=== PATIENT | female | born 1980 | race Caucasian/White ===

== ENCOUNTER 2022-04-28 15:22 | Outpatient (CLI) | payer OTHER, SELFPAY ==
--- NOTE | 2022-04-28 15:32 | MM_ITS ---
WS: [id number] BILATERAL 3D TOMOSYNTHESIS DIGITAL SCREENING MAMMOGRAPHY WITH CAD CLINICAL INFORMATION: SCREENING HISTORY: Screening mammogram. Bilateral breast pain and soreness Baseline TECHNIQUE: Bilateral CC and MLO views. FINDINGS: Scattered fibroglandular densities bilaterally. No suspicious focal mass, asymmetry, calcifications, or architectural distortion. No evidence of malignancy. Dense breast tissue upper inner LEFT breast. MM/[place] [id number] IMPRESSION: BI-RADS: 2-Benign FOLLOW UP: 1 Year Follow-up Recommend return to annual screening mammography.
== END 2022-04-28 15:23 | disposition home or self-care (01) ==
PROVIDERS: PCP Registered Nurse; Visit Provider Registered Nurse
DX: Z12.31 Encounter for screening mammogram for malignant neoplasm of breast (principal)
CPT/HCPCS: 77063; 77067

== ENCOUNTER → 2022-10-27 10:45 | Outpatient (BNVA) | payer SELFPAY | PROVIDERS: PCP Registered Nurse; Visit Provider Registered Nurse | DX: R10.9 Unspecified abdominal pain (principal) | CPT/HCPCS: 81000 ==

== ENCOUNTER → 2022-10-31 12:43 | Outpatient (BNVA) | payer SELFPAY | PROVIDERS: PCP Registered Nurse; Visit Provider Registered Nurse | DX: R10.9 Unspecified abdominal pain (principal) | CPT/HCPCS: 87086 ==

== ENCOUNTER 2022-12-05 10:46 | Emergency (ER) | payer SELFPAY ==
[2022-12-05 10:53] VITALS: BP 169/92; PULSE 76; RESP 17; TEMP 36.8; O2SAT 100; BMI 32.1
[2022-12-05 11:29] LABS: Basophils % 0.7 %; Eosinophils # 0.2 10^3/uL (0.0-0.8); Eosinophils % 2.6 %; Hematocrit 37.5 % (36-47); Lymphocytes # 1.9 10^3/uL (0.8-4.8); Mean Corpuscular HGB Conc 30.9 g/dL (30-55); Mean Corpuscular Hemoglobin 25.3 pg (27-33); Mean Corpuscular Volume 81.7 fl (85-98); Mean Platelet Volume 9.9 fL (7.4-10.4); Monocytes # 0.3 10^3/uL (0.2-0.9); Monocytes % 4.9 %; Neutrophils # 3.26 10^3/uL (1.8-7.7); Neutrophils % 57.6 %; Nucleated Red Blood Cells % 0 %; Platelet Count 263 10^3/cmm (157-399); Red Blood Count 4.59 10^6/uL (3.85-5.65); Red Cell Distribution Width 14.8 % (12.1-15.1); White Blood Count 5.67 10^3/uL (3.29-11.43)
--- NOTE | 2022-12-05 11:46 | ED_ITS ---
HPI - Abdominal Pain General: Chief Complaint: Abdominal Pain Stated Complaint: abd pain Time Seen by Provider: 12/05/22 11:15 Source: patient Mode of arrival: ambulatory History of Present Illness: 42-year-old female comes in complaining of right upper abdominal pain for the last year. She has been seen by a couple of different clinics has had gallbladder work-up which was negative she is on omeprazole. She has also been seen in another local ER. No significant finding up to this point she is little more nauseated this morning she was presented to the emergency room she has no history of nephrolithiasis no hematuria. No fevers sweats or chills. MD elicited complaint: abdominal pain Pertinent past history: none Onset (ago): year(s) Pain Consistency: intermittent Location: RUQ Severity: moderate Quality: cramping Radiation: R flank Exacerbating factors: nothing Relieving factors: nothing Associated Symptoms: Reports nausea; Denies anorexia, belching, bloating, change in bowel habits, change in stool melissa racter, chills, coffee ground emesis, constipation, GI cramping, diarrhea, dyspepsia, dysuria, excessive flatus, fever(s), heartburn, hematochezia, hematuria, hematemesis, fecal incontinence, loose stools, melena, poor appetite, syncope and vomiting Related Data: Patient : No Review of Systems Const: Denies: fever(s) or chills ENMT: Denies: throat pain, ear or mastoid pain, nasal discharge or nasal congestion Card: Denies: chest pain, palpitations or syncope Resp: Denies: dyspnea, productive cough or non-productive cough GI: Reports: abdominal pain and nausea; Denies: vomiting, hematemesis, coffee ground emesis, heartburn, diarrhea, con stipation, bloating, GI cramping, belching, excessive flatus, fecal incontinence, change in bowel habits, change in stool character, hematochezia or melena : Denies: dysuria, urinary frequency, urinary urgency or hematuria Skin/Breast: Denies: rash or pruritus PFSH ED PFSH: Medical History 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 Surgical History H/O tubal ligation History of x2 2001, 2003 Family History Father Anemia Denies family history of Diabetes CAD (coronary artery disease) Hyperlipidemia Psychiatric illness Chronic kidney disease (CKD) Lung disease Cancer Hypertension Stroke Social History Smoking and tobacco status: current some day smoker Second hand smoke exposure: No Alcohol intake: never Substance/Drug Use: never Adopted: No Caregiver/support person: No Lives independently: No Household members: spouse and children Marital status: service: No Current occupational status: employed Sexually active: Yes Do you think of yourself as: Straight/Heterosexual Current gender identity: Female Physical Exam Const: COMMON NORMALS: no acute distress GENERAL APPEARANCE: cooperative and comfortable ORIENTATION/CONSCIOUSNESS: Yes awake, Yes oriented to person, Yes oriented to place and Yes oriented to time HENMT: COMMON NORMALS: normocephalic, atraumatic and hearing grossly normal bilaterally HEAD & SCALP: normocephalic and atraumatic Resp: COMMON NORMALS: normal respiratory effort, No retractions, No use of acc essory muscles and clear to auscultation bilaterally AUSCULTATION: clear to auscultation bilaterally Cardio: COMMON NORMALS: regular rate, regular rhythm and No murmurs present (Cardio) RATE: regular rate RHYTHM: regular rhythm GI: COMMON NORMALS: Soft to palpation and No hepatosplenomegaly present AUSCULTATION: Yes normoactive bowel sounds PALPATION: Yes Soft to palpation, No Tenderness to palpation present (GI), No Guarding due to palpation present (G I) and Yes No hepatosplenomegaly present Extremity: COMMON NORMALS: normal to inspection, capillary refill normal, no clubbing, cyanosis or edema, no calf tenderness and no pedal edema Neuro: SENSORIUM/ORIENTATION: Yes oriented to person, Yes oriented to place and Yes oriented to time Skin: COMMON NORMALS: no rashes or lesions noted GENERAL SKIN EXAM: no rashes or lesions noted Course Vital Signs: Vital signs: Vital Signs Temperature 98.3 F 12/05/22 10:53 Pulse Rate 76 12/05/22 10:53 Respiratory Rate 17 12/05/22 10:53 Blood Pressure 169/92 12/05/22 10:53 Pulse Oximetry 100 10/03/23 13:14 Oxygen Delivery Me thod Room Air 12/05/22 10:53 MDM - Abdominal Pain Medical Decision Making Suspect biliary colic. Recommend outpatient HIDA scan. She had other multiple physical complaints recommend she follow-up with her primary care doctor though this is not of these are acute. We will set up outpatient HIDA scan. Patient reports previously having had normal gallbladder ultrasound. Differential Diagnosis Likely abdominal pain, calculus of kidney, constipation and gastroenteritis Medical Records I reviewed the patient's medical records. Lab Data I reviewed the patient's lab results. 12/05/22 11:24 12/05/22 11:24 Labs/Radiology: Laboratory Results WBC 5.67 10^3/uL (3.29-11.43) 12/05/22 11:24 RBC 4.59 10^6/uL (3.85-5.65) 12/05/22 11:24 Hgb 11.60 g/dL (11.27-16.99) 12/05/22 11:24 Hct 37.5 % (36-47) 12/05/22 11:24 MCV 81.7 fl (85-98) L 12/05/22 11:24 MCH 25.3 pg (27-33) L 12/05/22 11:24 MCHC 30.9 g/dL (30-55) 12/05/22 11:24 RDW 14.8 % (12.1-15.1) 12/05/22 11:24 Plt Count 263 10^3/cmm (157-399) 12/05/22 11:24 MPV 9.9 fL (7.4-10.4) 12/05/22 11:24 Neut % (Auto) 57.6 % 12/05/22 11:24 Lymph % (Auto) 34.0 % 12/05/22 11:24 Grant % (Auto) 4.9 % 12/05/22 11:24 Eos % (Auto) 2.6 % 12/05/22 11:24 Baso % (Auto) 0.7 % 12/05/22 11:24 Neut # (Auto) 3.26 10^3/uL (1.8-7.7) 12/05/22 11:24 Lymph # (Auto) 1.9 10^3/uL (0.8-4.8) 12/05/22 11:24 Grant # (Auto) 0.3 10^3/uL (0.2-0.9) 12/05/22 11:24 Eos # (Auto) 0.2 10^3/uL (0.0-0.8) 12/05/22 11:24 Baso # (Auto) 0.0 10^3/uL (0.0-0.1) 12/05/22 11:24 Nucleated RBC % (auto) 0 % 12/05/22 11:24 Nucleated RBCs # 0.0 /100WBC 12/05/22 11:24 Sodium 136 mmol/L (136-145) 12/05/22 11:24 Potassium 3.9 mmol/L (3.5-5.1) 12/05/22 11:24 Chloride 104 mmol/L (98-107) 12/05/22 11:24 Carbon Dioxide 23 mmol/L (22-29) 12/05/22 11:24 Anion Gap 12.9 (5-19) 12/05/22 11:24 BUN 12 mg/dL (6-20) 12/05/22 11:24 Creatinine 0.5 mg/dL (0.5-0.9) 12/05/22 11:24 GFR Calculation 136.0 mL/min (90-130) H 12/05/22 11:24 Glucose 103 mg/dL (65-115) 12/05/22 11:24 Calculated Osmolality 282 mOsm/kg (285-295) L 12/05/22 11:24 Calcium 8.7 mg/dL (8.5-10.5) 12/05/22 11:24 Total Bilirubin 0.4 mg/dL (0.15-1.2) 12/05/22 11:24 AST 14 U/L (0-32) 12/05/22 11:24 ALT 8 U/L (0-33) 12/05/22 11:24 Alkaline Phosphatase 85 U/L (35-105) 12/05/22 11:24 Total Protein 7.4 g/dL (6.6-8.7) 12/05/22 11:24 Albumin 4.3 g/dL (3.5-5.2) 12/05/22 11:24 Globulin 3.1 g/dL (1.3-4.6) 12/05/22 11:24 Lipase 29 U/L (13-60) 12/05/22 11:24 HCG, Qual Negative (Negative) 12/05/22 11:24 Urine Color Yellow (Yellow) 12/05/22 12:10 Urine Appearance Clear (CLEAR) 12/05/22 12:10 Urine pH 6 (5-7) 12/05/22 12:10 Ur Specific [place] 1.010 (1.005-1.030) 12/05/22 12:10 Urine Protein Neg (Negative) 12/05/22 12:10 Urine Glucose (UA) Norm (Normal) 12/05/22 12:10 Urine Ketones Negative (Negative) 12/05/22 12:10 Urine Blood Neg (Negative) 12/05/22 12:10 Urine Nitrate Negative (Negative) 12/05/22 12:10 Urine Bilirubin Neg (Negative) 12/05/22 12:10 Urine Urobilinogen Norm mg/dL (Negative) 12/05/22 12:10 Ur Leukocyte Esterase Negative (Negative) 12/05/22 12:10 No radiology studies performed this visit Discharge Plan Discharge Patient Disposition: Home Clinical Impression: Abdominal pain, Colic, biliary Condition: Stable Prescriptions: No Action ibuprofen 200 mg Tablet 600 mg PO Q6H PRN (Reason: Pain) omeprazole 20 mg Tablet,Delayed Release (Dr/Ec) 20 mg PO DAILY Discharge Orders: Discharge ED (Routine); Ordered 12/05/22 Ordered By: Pastor Taylor Referrals: Kelly Alford, [facility] [Primary Care Provider] - Discharge Diet: As Directed Discharge Activity: Increase activity as tolerated Patient Instructions: Abdominal Pain (ED), Biliary Dyskinesia (DC), Opioid Safety, Pain Management Activity Restrictions/Additional Instructions: Case management will set up a HIDA scan to evaluate your gallbladder further. Follow-up with your primary care doctor. Coding Level of Care Code ED Food Service Team Member for Flakita Chicas
[2022-12-05 11:47] LABS: Alanine Aminotransferase 8 U/L (0-33); Albumin Level 4.3 g/dL (3.5-5.2); Alkaline Phosphatase 85 U/L (35-105); Anion Gap 12.9 (5-19); Aspartate Amino Transferase 14 U/L (0-32); Blood Urea Nitrogen 12 mg/dL (6-20); Calcium 8.7 mg/dL (8.5-10.5); Carbon Dioxide 23 mmol/L (22-29); Chloride 104 mmol/L (98-107); Globulin 3.1 g/dL (1.3-4.6); Glucose 103 mg/dL (65-115); Lipase 29 U/L (13-60); Osmolality Calculated 282 mOsm/kg (285-295); Potassium 3.9 mmol/L (3.5-5.1); Sodium 136 mmol/L (136-145); Total Bilirubin 0.4 mg/dL (0.15-1.2); Total Protein 7.4 g/dL (6.6-8.7)
[2022-12-05 11:57] LABS: HCG, Serum Qual Negative (Negative)
[2022-12-05 12:21] LABS: Add Urine Microscopic? NO; Charge for UA Resulting for Rev
[2022-12-05 12:26] LABS: Bilirubin Urine Neg (Negative); Blood Urine Neg (Negative); Glucose Urine UA Norm (Normal); Ketones Urine Negative (Negative); Leukocyte Esterase Urine Negative (Negative); Nitrate Urine Negative (Negative); Protein Urine Neg (Negative); Urine Appearance Clear (CLEAR); Urine Color Yellow (Yellow); Urobilinogen Urine Norm (Negative); pH Urine 6 (5-7)
[2022-12-05 13:14] VITALS: O2SAT 100
--- NOTE | 2022-12-06 13:30 | PC.SOCIAL ---
Orders for HIDA scan faxed to Centralized scheduling. Message sent to [facility]. [facility] clinic for follow up appt.
== END 2022-12-05 13:16 | disposition home or self-care (01) ==
PROVIDERS: Emergency Provider Family Medicine; PCP Registered Nurse
DX: R10.11 Right upper quadrant pain (principal); K80.50 Calculus of bile duct without cholangitis or cholecystitis without obstruction; F17.210 Nicotine dependence, cigarettes, uncomplicated
CPT/HCPCS: 36415; 80053; 81003; 83690; 84703; 85025; 99283

== ENCOUNTER 2022-12-14 07:45 | Outpatient (CLI) | payer SELFPAY ==
--- NOTE | 2022-12-14 07:54 | NM_ITS ---
WS: [id number] NUCLEAR MEDICINE HIDA SCAN CLINICAL INFORMATION: BILIARY COLIC, ABD PAIN TECHNIQUE: Following intravenous administration of 7.3 mCi of technetium 99m mebrofenin, images of th e abdomen were obtained over the course of 60 minutes. Next, gallbladder ejection fraction was determ ined by obtaining preprandial and one-hour postprandial images of the gallbladder following oral enoc stion of Ensure. COMPARISON: None. FINDINGS: Normal hepatic uptake at 5 minutes. Normal hepatic excretion. Gallbladder is visualized by 10 minutes . No evidence of acute cholecystitis. Normal common bile duct and small bowel activity. Gallbladder ejection fraction 63% within normal limits. No evidence of chronic cholecystitis. IMPRESSION: 1. No evidence of acute or chronic cholecystitis. 2. Gallbladder ejection fraction 63% within normal limits.
== END 2022-12-14 07:46 | disposition home or self-care (01) ==
LOC: RAD 07:47
PROVIDERS: PCP Registered Nurse; Visit Provider Family Medicine
DX: K80.50 Calculus of bile duct without cholangitis or cholecystitis without obstruction (principal); R10.9 Unspecified abdominal pain
CPT/HCPCS: 78227; A9537

== ENCOUNTER 2024-01-25 10:43 | Outpatient (CLI) | payer OTHER, SELFPAY ==
--- NOTE | 2024-01-25 10:51 | MM_ITS ---
WS: [id number] VIEWS: MLO and CC views both breasts. 3D digital tomosynthesis is also included in this exam. Comparison made with prior exam of 06/29/2021 Findings: There are scattered areas of fibroglandular density. No mass, tumor calcification or architectural distortion noted. MM/MM scr BI tomosynthesis [id number] Impression: BI-RADS: 2 - Benign FOLLOW-UP: 1 Year Follow-up This mammogram was also analyzed by the Computer Aided Detection System R2 Imag e Key Bed Installer.
== END 2024-01-25 10:44 | disposition home or self-care (01) ==
LOC: RAD 10:45
PROVIDERS: PCP Registered Nurse; Visit Provider Family Medicine
DX: Z12.31 Encounter for screening mammogram for malignant neoplasm of breast (principal); R92.323 Mammographic fibroglandular density, bilateral breasts
CPT/HCPCS: 77063; 77067